=== PATIENT | female | born 1945 | race Caucasian/White ===

== ENCOUNTER 2019-12-17 07:07 | Emergency (ER) | payer MEDICARE ==
[2019-12-17] MEDS ORDERED: AMIODARONE 150 MG/3 ML VIAL IV ONE (07:08)
[2019-12-17] MEDS ORDERED: SODIUM BICARBONATE ABBOJECT 50 MEQ/50 ML SYRINGE IVP ONE (07:08)
[2019-12-17] MEDS ORDERED: EPINEPHrine ABBOJECT 1 MG/10 ML SYRINGE IVP ONE (07:08)
[2019-12-17] MEDS ORDERED: HEPARIN 5,000 UNIT/ML VIAL ONE (07:25)
[2019-12-17] MEDS ORDERED: ASPIRIN CHEW 81 MG TABLET ONE (07:25)
[2019-12-17] MEDS ORDERED: HEPARIN 25000UNITS/500ML (D5W) 25,000 UNIT/500 ML BAG IV ONE (07:26)
[2019-12-17] MEDS ORDERED: METOPROLOL TARTRATE 50 MG TABLET ONE (07:26)
[2019-12-17] MEDS ORDERED: NITROGLYCERIN SL 0.4 MG TABLET SL ONE (07:26)
--- NOTE | 2019-12-17 07:31 | ED Physician Documentation ---
PD HPI CHEST PAIN - Stated complaint Stated Complaint: CHEST PX - Chief complaint Chief Complaint: Cardiac - History obtained from History obtained from: Patient - Additional information Additional information: Patient presents emergency department complaining of substernal chest pain radiating to her left arm since 4:00 this morning. She states pain is 10 out of 10 and is a pressure and squeezing sensation. The patient states that she began to have chest discomfort yesterday evening, but that it was intermittent. However, she had intermittent pains all night but began to have unbroken pain ar ound 4:00 this morning. She states she feels mildly short of breath. No nausea or vomiting. She has been diaphoretic all morning. The patient states that nothing really seems to make the pain better or worse, but that she has not really tried to walk around. The patient denies history of this previously. No history of GERD. The patient states she had a stress test about 10 years ago but was not able to complete it, due to what she was told was deconditioning from her obesity. Patient states that she is not known to be a diabetic and usually has low blood pressure, not high. Patient is not known to have any coronary artery disease. She is not a smoker. No other complaints at this time. Review of Systems Ten Systems: 10 systems reviewed and negative Constitutional: reports: Reviewed and negative Eyes: reports: Reviewed and negative Ears: reports: Reviewed and negative Nose: reports: Reviewed and negative Throat: reports: Reviewed and negative Cardiac: reports: Chest pain / pressure Respiratory: reports: Dyspnea GI: reports: Reviewed and negative : reports: Reviewed and negative Skin: reports: Other (Diaphoresis) Musculoskeletal: reports: Reviewed and negative Neurologic: reports: Reviewed and negative Psychiatric: reports: Reviewed and negative Endocrine: reports: Reviewed and negative Immunocompromised: reports: Reviewed and negative PD PAST MEDICAL HISTORY - Past Medical History Past Medical History: No - Past Surgical 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, 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 - Present Medications Home Medications: Ambulatory Orders Medication Instructions Recorded Confirmed Mecobalamin [B12 Active] 1,000 mcg PO DAILY 12/17/19 12/17/19 No Known Home Medications 12/17/19 12/17/19 - Allergies Allergies/Adverse Reactions: Allergies Allergy/AdvReac Type Severity Reaction Status Date / Time codeine Allergy Unknown Verified 12/17/19 07:15 - Social History Does the pt smoke?: No Smoking Status: Never smoker Does the pt drink ETOH?: Yes ETOH Use: Wine Does the pt have substance abuse?: No - Immunizations Immunizations are current?: Yes PD ED PE NORMAL - Vitals Vital signs reviewed: Yes - General General: Alert and oriented X 3, Well developed/nourished, Other (Patient appears anxious and uncomfortable.She is tachypneic.) - HEENT HEENT: Atraumatic, PERRL, EOMI, Moist mucous membranes - Neck Neck: Supple, no meningeal sign - Cardiac Cardiac: RRR, No murmur, Strong equal pulses - Respiratory Respiratory: No respiratory distress, Clear bilaterally, Other (Patient is tachypneic but has nonlabored respirations.) - Abdomen Abdomen: Soft, Non tender, Non distended - Derm Derm: Normal color, No rash, Other (Moderate diaphoresis) - Extremities Extremities: No deformity - Neuro Neuro: Alert and oriented X 3, 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, No motor deficit, No sensory deficit, Normal speech - Psych Psych: Normal affect, Other (Anxious) Results - Vitals Vitals: Oxygen O2 Source Room air - EKG (time done) 0708 Rate: Rate (enter#) (77) Rhythm: NSR [place]: Normal Intervals: Normal [place] QRS: Normal Ischemia: ST elevation c/w ischemia Compare to prior EKG: Old EKG unavailable Computer interpretation: Agree with computer 0755 Rate: Rate (enter#) (80) Rhythm: NSR [place]: Normal Intervals: Normal [place] QRS: Normal Ischemia: ST elevation c/w ischemia (V1-V4, tombstone morphology), ST depression, T wave inversion (3, AVF) - Labs Labs: Laboratory Tests 12/17/19 12/17/19 12/17/19 07:18 07:18 07:18 WBC 10.2 RBC 4.84 Hgb 14.7 Hct 45.1 MCV 93.2 MCH 30.4 MCHC 32.6 RDW 14.8 Plt Count 283 MPV 10.8 Neut # (Auto) 6.0 Lymph # (Auto) 2.9 [place] # (Auto) 1.0 Eos # (Auto) 0.3 Baso # (Auto) 0.1 Absolute Nucleated RBC 0.00 Nucleated RBC % 0.0 Sodium 136 Potassium 3.6 Chloride 104 Carbon Dioxide 22 Anion Gap 10.0 BUN 25 H Creatinine 0.9 Estimated GFR (MDRD) 61 L Glucose 142 H POC Whole Bld Glucose Calcium 9.1 Total Bilirubin 0.4 AST 34 ALT 37 Alkaline Phosphatase 107 Troponin I High Sens 10.6 Total Protein 7.6 Albumin 4.2 Globulin 3.4 Albumin/Globulin Ratio 1.2 Lipase 41 12/17/19 07:29 WBC RBC Hgb Hct MCV MCH MCHC RDW Plt Count MPV Neut # (Auto) Lymph # (Auto) [place] # (Auto) Eos # (Auto) Baso # (Auto) Absolute Nucleated RBC Nucleated RBC % Sodium Potassium Chloride Carbon Dioxide Anion Gap BUN Creatinine Estimated GFR (MDRD) Glucose POC Whole Bld Glucose 139 H Calcium Total Bilirubin AST ALT Alkaline Phosphatase Troponin I High Sens Total Protein Albumin Globulin Albumin/Globulin Ratio Lipase PD MEDICAL DECISION MAKING - ED course Complexity details: reviewed results, re-evaluated patient, considered differential, d/w patient ED course: The patient's symptoms were concerning for an acute coronary event, and EKG showed ST elevations in V1 through V4, with inverted T waves in leads III and aVF. The patient was immediately given aspirin, heparin, metoprolol, and nitroglycerin. The nitroglycerin did improve the patient's pain greatly. I did speak with Dr. Schofield at [facility], who agreed to accept the patient in transfer. The patient was informed of the need for transfer and expressed agreement. The patient was being prepared for transfer when I was called into the patient's room emergently by nursing staff who stated that the patient had gone into ventricular tachycardia and lost consciousness. Patient was immediately attached to the defibrillator pads, and 3 shocks were ultimately delivered at 200 J each. After the third shock, the patient was found to come back into a sinus rhythm though she remained in V. tach in between each shock previously. Patient did not immediately regain consciousness, but was found to have a strong peripheral pulse, both radial and strong central pulses in her carotid artery. The patient did begin to awaken somewhat but within 1 or 2 minutes, began to lose consciousness again as she went back into ventricular tachycardia. Another shock was administered, but patient did not regain consciousness and was noted to be in ventricular fibrillation on the monitor. A another shock was administered and patient was also given amiodarone 300 mg IV. We were preparing to give epinephrine, when patient was given a third shock and was noted to come back into a sinus rhythm once again. Patient did remain awake though somewhat drowsy after this. Her blood pressure was found to be hypertensive, but she did remain in a normal sinus rhythm with a strong pulse after this and did not require further ACLS interventions. The patient's transport was changed from ground to air, and life flight crew did arrive within minutes. The patient remained stable after this. A repeat EKG showed more definite ST elevations in the anterior leads. The patient was transferred without further events. She was found to have a normal first troponin in the emergency department. - Critical Care Time(min): 60 Comments: Critical care was necessary, due to acute life-threatening event with high likelihood of imminent decline and , secondary to acute ST elevation [place], unstable ventricular tachycardia, and ventricular fibrillation. Time Includes: Direct patient care, Review records, Reassess patient, Document care, Coordinate care, See progress note Data interpretation: Labs, Pulse ox, Prior EKG, Cardiac output, See progress note Departure - Departure Disposition: 02 Transfer Acute Care Hosp Clinical Impression: STEMI (ST elevation myocardial infarction) Qualifiers: Involved coronary artery: unspecified coronary artery Qualified Code(s): I21.3 - ST elevation (STEMI) myocardial infarction of unspecified site Discharge Date/Time: 12/17/19 08:15
[2019-12-17 07:33] LABS: BASOPHILS # (AUTO) 0.1 10^3/uL (0.0-0.1); BASOPHILS % (AUTO) 0.7 %; EOSINOPHILS # (AUTO) 0.3 10^3/uL (0.0-0.7); EOSINOPHILS % (AUTO) 2.6 %; HGB - HEMOGLOBIN 14.7 g/dL (12.0-16.0); LYMPHOCYTES # (AUTO) 2.9 10^3/uL (1.5-3.5); LYMPHOCYTES % (AUTO) 28.1 %; MEAN CORPUSCULAR HEMOGLOBIN 30.4 pg (27.0-31.0); MEAN CORPUSCULAR HGB CONC 32.6 g/dL (32.0-36.0); MEAN CORPUSCULAR VOLUME 93.2 fL (81.0-99.0); MEAN PLATELET VOLUME 10.8 fL (7.9-10.8); MONOCYTES % (AUTO) 9.6 %; NEUTROPHILS % (AUTO) 58.3 %; PLT - PLATELET COUNT 283 10^3/uL (130-450); RED BLOOD COUNT 4.84 10^6/uL (4.20-5.40); RED CELL DISTRIBUTION WIDTH 14.8 % (12.0-15.0); WHITE BLOOD COUNT 10.2 x10^3/uL (4.8-10.8)
[2019-12-17] MEDS ORDERED: NITROGLYCERIN SL 0.4 MG TABLET SL STA (07:35)
[2019-12-17] MEDS ORDERED: HEPARIN 5,000 UNIT/ML VIAL IVP STA (07:35)
[2019-12-17] MEDS ORDERED: HEPARIN 25000UNITS/500ML (D5W) 25,000 UNIT/500 ML BAG IV STA (07:36)
[2019-12-17] MEDS ORDERED: METOPROLOL TARTRATE 50 MG TABLET PO STA (07:36)
[2019-12-17 07:38] LABS: ALBUMIN 4.2 g/dL (3.2-5.5); ALBUMIN/GLOBULIN RATIO 1.2 (1.0-2.2); BILIRUBIN,TOTAL 0.4 mg/dL (0.2-1.0); CALCIUM 9.1 mg/dL (8.5-10.3); CREATININE 0.9 mg/dL (0.4-1.0); TOTAL PROTEIN 7.6 g/dL (6.7-8.2)
[2019-12-17] MEDS ORDERED: ONDANSETRON 4 MG/2 ML VIAL IVP STA (07:53)
[2019-12-17] MEDS ORDERED: ONDANSETRON 4 MG/2 ML VIAL ONE (07:56)
[2019-12-17 07:59] VITALS: BP 160/96
== END 2019-12-17 08:15 | disposition short-term general hospital (02) ==
LOC: ED 07:07
DX: I21.3 ST elevation (STEMI) myocardial infarction of unspecified site (principal); I47.2 Ventricular tachycardia; I49.01 Ventricular fibrillation; I10 Essential (primary) hypertension
CPT/HCPCS: 36415; 80053; 83690; 84484; 85025; 93005; 96374; 96375; 99285; 99291; A9270; J0282

== ENCOUNTER 2019-12-27 14:54 | Emergency (ER) | payer MEDICARE ==
[2019-12-27] MEDS ORDERED: HYDROmorphone 1 MG/ML CARPUJECT IM STA (15:48)
--- NOTE | 2019-12-27 15:49 | ED Physician Documentation ---
PD HPI LOWER EXT INJURY - Stated complaint Stated Complaint: LT LEG PX - Chief complaint Chief Complaint: Ext Problem - History obtained from History obtained from: Patient (Recent ST elevation [place], taken from here over to [facility] where she has a stents, I think in her LAD. She is been home for about 5 or 6 days now, subsequent to having her procedure done she developed some significant pain in the left lower extremity. It is of the left thigh mostly anteriorly and laterally. At times it is much worse than others. Pain is almost so bad she cannot walk now. She denies fevers or chills. Has no significant back pain. She denies pedal edema. 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, Other - Present Medications Home Medications: Ambulatory Orders Medication Instructions Recorded Confirmed Mecobalamin [B12 Active] 1,000 mcg PO DAILY 12/17/19 12/17/19 Oxycodone HCl/Acetaminophen 1 - 2 each PO Q6H PRN #14 tablet 12/27/19 [Percocet 5-325 mg Tablet] predniSONE [Deltasone] 20 mg PO [id number] #21 tab 12/27/19 - Allergies Allergies/Adverse Reactions: Allergies Allergy/AdvReac Type Severity Reaction Status Date / Time codeine Allergy Unknown Verified 12/27/19 15:07 - Social History Does the pt smoke?: No Smoking Status: Never smoker Does the pt drink ETOH?: Yes Does the pt have substance abuse?: No - Immunizations Immunizations are current?: Yes PD ED PE NORMAL - Vitals Vital signs reviewed: Yes - General General: Alert and oriented X 3, No acute distress - HEENT HEENT: PERRL, EOMI - Neck Neck: Supple, no meningeal sign, No bony TTP - Extremities Extremities: Other (Left leg is warm and well perfused, visually normal, I do not see anything that looks like ischemia or sepsis. She is tender over the anteriorly and lateral thigh, also medially. There does not seem to be any asymmetry and there is no calf tenderness.) - Neuro Neuro: Alert and oriented X 3, Normal speech Results - Vitals Vitals: Vital Signs - 24 hr 12/27/19 12/27/19 15:07 16:00 Temperature 36.7 C 36.7 C Heart Rate 71 70 Respiratory 14 16 Rate Blood Pressure 149/68 H 158/58 H O2 Saturation 97 98 Oxygen O2 Source Room air - Labs Labs: Laboratory Tests 12/27/19 12/27/19 16:21 16:21 WBC 10.3 RBC 4.20 Hgb 12.9 Hct 39.4 MCV 93.8 MCH 30.7 MCHC 32.7 RDW 14.6 Plt Count 326 MPV 10.9 H Neut # (Auto) 7.9 H Lymph # (Auto) 1.3 L [place] # (Auto) 0.8 Eos # (Auto) 0.3 Baso # (Auto) 0.1 Absolute Nucleated RBC 0.00 Nucleated RBC % 0.0 Sodium 137 Potassium 4.3 Chloride 104 Carbon Dioxide 25 Anion Gap 8.0 BUN 23 H Creatinine 0.8 Estimated GFR (MDRD) 70 L Glucose 103 H Calcium 9.2 Total Bilirubin 0.7 AST 18 ALT 24 Alkaline Phosphatase 106 Total Protein 7.4 Albumin 3.8 Globulin 3.6 Albumin/Globulin Ratio 1.1 Lipase 38 - Rads (name of study) LLE DVT sono Radiology: EMP read contemporaneously (negative) PD MEDICAL DECISION MAKING - ED course ED course: 74yo woman with LLE pain most c/w with sciatica; ddx also includes infection, DVT. No evidence of the latter though. Departure - Departure Disposition: 01 Home, Self Care Clinical Impression: Sciatica of left side Condition: Good Record reviewed to determine appropriate education?: Yes Instructions: ED Sciatica Prescriptions: Oxycodone HCl/Acetaminophen [Percocet 5-325 mg Tablet] 1 - 2 each PO Q6H PRN #14 tablet PRN Reason: pain predniSONE [Deltasone] 20 mg PO [id number] #21 tab Comments: Return if worse, if pain is uncontrolled, for new or worrisome symptoms. Followup with your doctor tomorrow regardless.
[2019-12-27 16:38] LABS: BASOPHILS # (AUTO) 0.1 10^3/uL (0.0-0.1); BASOPHILS % (AUTO) 0.7 %; EOSINOPHILS # (AUTO) 0.3 10^3/uL (0.0-0.7); EOSINOPHILS % (AUTO) 2.6 %; HGB - HEMOGLOBIN 12.9 g/dL (12.0-16.0); LYMPHOCYTES # (AUTO) 1.3 10^3/uL (1.5-3.5); LYMPHOCYTES % (AUTO) 12.1 %; MEAN CORPUSCULAR HEMOGLOBIN 30.7 pg (27.0-31.0); MEAN CORPUSCULAR HGB CONC 32.7 g/dL (32.0-36.0); MEAN CORPUSCULAR VOLUME 93.8 fL (81.0-99.0); MEAN PLATELET VOLUME 10.9 fL (7.9-10.8); MONOCYTES # (AUTO) 0.8 10^3/uL (0.0-1.0); MONOCYTES % (AUTO) 7.6 %; NEUTROPHILS # (AUTO) 7.9 10^3/uL (1.5-6.6); NEUTROPHILS % (AUTO) 76.6 %; PLT - PLATELET COUNT 326 10^3/uL (130-450); RED CELL DISTRIBUTION WIDTH 14.6 % (12.0-15.0); WHITE BLOOD COUNT 10.3 x10^3/uL (4.8-10.8)
[2019-12-27 17:00] LABS: ALBUMIN 3.8 g/dL (3.2-5.5); ALBUMIN/GLOBULIN RATIO 1.1 (1.0-2.2); BILIRUBIN,TOTAL 0.7 mg/dL (0.2-1.0); CALCIUM 9.2 mg/dL (8.5-10.3); CREATININE 0.8 mg/dL (0.4-1.0); TOTAL PROTEIN 7.4 g/dL (6.7-8.2)
--- NOTE | 2019-12-27 17:29 | Ultrasound Report ---
Reason: leg pain Procedure Date: 12/27/2019 Accession Number: [id number] / [id number] Procedure: US - Duplex Ext Veins Left CPT Code: Final Report FULL RESULT: EXAM: LEFT LOWER EXTREMITY VENOUS ULTRASOUND EXAM DATE: 12/27/2019 04:40 PM. CLINICAL HISTORY: Leg pain. Patient on blood thinner. Patient indicates proximal lateral thigh pain. COMPARISON: None. TECHNIQUE: Real-time sonographic vascular imaging was performed by the depositing machine operator through the lower extremity utilizing both color-flow and Doppler spectral analysis. Multiple event representative static images were saved for review. FINDINGS: Common Femoral Vein (CFV): Normal. CFV-GSV Junction: Normal. Profunda Femoral Vein (PFV): Normal. Femoral Vein (FV) Prox: Normal. Femoral Vein (FV) Mid: Normal. Femoral Vein (FV) Dist: Normal. Popliteal Vein: Normal. Posterior Tibial Veins: Limited visualization. Peroneal Veins: Limited visualization. Contralateral Side CFV: Normal. Other: Small fluid collection medial patellar recess. IMPRESSION: Negative for left common femoral vein, left superficial femoral vein and left popliteal vein thrombosis. RADIA
[2019-12-27] MEDS ORDERED: predniSONE 20 MG TABLET PO STA (17:30)
[2019-12-27] MEDS ORDERED: oxyCODONE 5 MG TABLET PO STA (17:30)
[2019-12-27 17:54] VITALS: BP 138/89
== END 2019-12-27 17:53 | disposition home or self-care (01) ==
LOC: ED 14:54
DX: M54.32 Sciatica, left side (principal)
CPT/HCPCS: 36415; 80053; 83690; 85025; 93971; 96372; 99283; A9270; J1170; J7512

== ENCOUNTER 2019-12-30 10:10 | Emergency (ER) | payer MEDICARE ==
--- NOTE | 2019-12-30 11:14 | CT Report ---
Reason: Neuro deficit, acute, stroke suspected Procedure Date: 12/30/2019 Accession Number: [id number] / [id number] Procedure: CT - Head W/O Stroke Protocol CPT Code: Final Report FULL RESULT: EXAM: CT HEAD EXAM DATE: 12/30/2019 10:51 AM. CLINICAL HISTORY: Neuro deficit, acute, stroke suspected. COMPARISON: None. TECHNIQUE: Multiaxial CT images were obtained from the foramen magnum to the vertex. Reformats: Sagittal and coronal. IV contrast: None. In accordance with CT protocol optimization, one or more of the following dose reduction techniques were utilized for this exam: automated exposure control, adjustment of mA and/or KV based on patient size, or use of iterative reconstructive technique. FINDINGS: Clark-white matter differentiation is preserved. No intracranial mass or hemorrhage is present. No extra-axial fluid collections identified. Ventricles and sulci are within normal limits. Mastoid air cells are well aerated. The calvarium is intact. Soft tissue foci in the scalp likely reflects sebaceous cysts. IMPRESSION: 1. Normal noncontrast head CT. RADIA The critical test notification system was initiated by Dr. Alan Casillas at 11:03 AM on 12/30/2019. The above critical test findings were discussed with Edwige Piedra by Dr. Alan Casillsa at 11:05AM on 12/30/2019.
[2019-12-30 11:20] LABS: BASOPHILS # (AUTO) 0.1 10^3/uL (0.0-0.1); BASOPHILS % (AUTO) 0.4 %; EOSINOPHILS # (AUTO) 0.1 10^3/uL (0.0-0.7); EOSINOPHILS % (AUTO) 0.3 %; HGB - HEMOGLOBIN 12.6 g/dL (12.0-16.0); LYMPHOCYTES # (AUTO) 1.2 10^3/uL (1.5-3.5); MEAN CORPUSCULAR HEMOGLOBIN 30.5 pg (27.0-31.0); MEAN CORPUSCULAR HGB CONC 32.5 g/dL (32.0-36.0); MEAN CORPUSCULAR VOLUME 93.9 fL (81.0-99.0); MEAN PLATELET VOLUME 10.8 fL (7.9-10.8); MONOCYTES # (AUTO) 0.7 10^3/uL (0.0-1.0); MONOCYTES % (AUTO) 4.4 %; NEUTROPHILS # (AUTO) 14.7 10^3/uL (1.5-6.6); NEUTROPHILS % (AUTO) 87.2 %; PLT - PLATELET COUNT 348 10^3/uL (130-450); RED BLOOD COUNT 4.13 10^6/uL (4.20-5.40); RED CELL DISTRIBUTION WIDTH 14.6 % (12.0-15.0); WHITE BLOOD COUNT 16.8 x10^3/uL (4.8-10.8)
[2019-12-30 11:30] LABS: INR 1.2 (0.8-1.2); PT - PROTHROMBIN TIME 13.1 secs (9.9-12.6)
[2019-12-30 11:33] LABS: ALBUMIN 3.5 g/dL (3.2-5.5); ALBUMIN/GLOBULIN RATIO 0.9 (1.0-2.2); BILIRUBIN,TOTAL 0.6 mg/dL (0.2-1.0); CALCIUM 8.8 mg/dL (8.5-10.3); CREATININE 0.9 mg/dL (0.4-1.0); TOTAL PROTEIN 7.2 g/dL (6.7-8.2)
--- NOTE | 2019-12-30 14:33 | ED Physician Documentation ---
History of Present Illness - Stated complaint Stated Complaint: L SIDED WEAKNESS - Chief complaint Chief Complaint: Neuro - History obtained from History obtained from: Patient - Additonal information Additional information: Patient comes emergency department for follow-up of left-sided weakness that she has noticed over the last couple weeks since experiencing a STEMI with subsequent cardiac arrest. Patient states that while she was in the hospital at [facility] during her admission starting December 16, she began to notice a left-sided weakness of her arm and leg after she recovered from her cardiac cat heterization. She states she had had 2 stents placed and stayed in the hospital for several days afterward. She states she was afraid that she would get sent to a penitentiary or rehab center which she did not want to do, so she did not say much about the left-sided weakness. She states she was told by his therapist that if she could walk, she could go home to her own house with her . Patient states she was able to walk at the hospital but that it was very hard for her to lift her left leg up going up the stairs. However, she was cleared for discharge. She states that she just began having a home physical therapist coming to her house, and that the PT was concerned about this weakness. He called and talked to his supervising doctor, who told him to have the patient come here for further evaluation, which the patient has done. She states that the weakness really has not gotten any better or worse over the last couple of weeks. She states she has been trying to get up and around, but she is just very tired after her cardiac event, and that between this and the weakness, she has not been doing as much as she would like. The patient has been using a walker and a cane, which is new for her also since her cardiac admission. Patient states that she is not having any chest symptoms and that she otherwise is feeling fairly well. She denies any new visual changes or dr ooping face. No difficulty speaking or swallowing. Patient states she is able to hold things with her left hand but that she cannot hold them very tightly and that frequently they slide out. She also cannot make a fist the way she used to be able to. She states that she can stand on her left leg with the assistance of the walker, but that does tend to crumple under her. No other complaints at this time. No history of CVA. Patient is currently on Plavix, aspirin, antihypertensives, and a statin. According to discharge papers from [facility], patient has an appointment at [facility] residency clinic with Dr. Whyte at 1:00 in the afternoon on January 05. Review of Systems Ten Systems: 10 systems reviewed and negative Constitutional: reports: Reviewed and negative Eyes: reports: Reviewed and negative Ears: reports: Reviewed and negative Nose: reports: Reviewed and negative Throat: reports: Reviewed and negative Cardiac: reports: Reviewed and negative Respiratory: reports: Reviewed and negative GI: reports: Reviewed and negative : reports: Reviewed and negative Skin: reports: Reviewed and negative Musculoskeletal: reports: Reviewed and negative Neurologic: reports: Focal weakness (Left side) Psychiatric: reports: Reviewed and negative Endocrine: reports: Reviewed and negative Immunocompromised: reports: Reviewed and negative PD PAST MEDICAL HISTORY - Past Medical History Past Medical History: Yes Cardiovascular: [place] - Past Surgical History 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, Other Cardiovascular: Coronary stent - Present Medications Home Medications: Ambulatory Orders Medication Instructions Recorded Confirmed Mecobalamin [B12 Active] 1,000 mcg PO DAILY 12/17/19 12/17/19 Oxycodone HCl/Acetaminophen 1 - 2 each PO Q6H PRN #14 tablet 12/27/19 [Percocet 5-325 mg Tablet] predniSONE [Deltasone] 20 mg PO [id number] #21 tab 12/27/19 - Allergies Allergies/Adverse Reactions: Allergies Allergy/AdvReac Type Severity Reaction Status Date / Time codeine Allergy Unknown Verified 12/30/19 10:36 - Social History Does the pt smoke?: No Smoking Status: Never smoker Does the pt drink ETOH?: Yes Does the pt have substance abuse?: No - Immunizations Immunizations are current?: Yes PD ED PE NORMAL - Vitals Vital signs reviewed: Yes - General General: Alert and oriented X 3, No acute distress - HEENT HEENT: PERRL - Neck Neck: Supple, no meningeal sign - Cardiac Cardiac: RRR, No murmur - Respiratory Respiratory: No respiratory distress, Clear bilaterally - Abdomen Abdomen: Soft, Non tender, Non distended - Derm Derm: Warm and dry - Extremities Extremities: No deformity - Neuro Neuro: Alert and oriented X 3 - Psych Psych: Normal mood, Normal affect PD ED PE EXPANDED - Neuro Neuro: Alert and Oriented X 3, Weakness, LUE (Patient has markedly weakened safety intern strength of the left hand compared to the right. She is not able to fully close her flexed fingers around my fingers. She is able to only weakly resist with flexion of the elbow when trying to pull my hand toward her body with resistance. Patient can oppose her fingers and thumb on the left, but this is slow and without from resistance. She is able to hold her left arm straight forward against gravity, but with some drift.), LLE (Able to resist gravity, but somewhat weakly when asked to lift her left leg off the bed. Dorsiflexion is present but markedly weaker than the right side at 4 out of 5.) Results - Vitals Vitals: Oxygen O2 Source Room air - Labs Labs: Laboratory Tests 12/30/19 12/30/19 12/30/19 11:02 11:02 11:02 WBC 16.8 H RBC 4.13 L Hgb 12.6 Hct 38.8 MCV 93.9 MCH 30.5 MCHC 32.5 RDW 14.6 Plt Count 348 MPV 10.8 Neut # (Auto) 14.7 H Lymph # (Auto) 1.2 L [place] # (Auto) 0.7 Eos # (Auto) 0.1 Baso # (Auto) 0.1 Absolute Nucleated RBC 0.00 Nucleated RBC % 0.0 PT 13.1 H INR 1.2 Sodium 136 Potassium 4.4 Chloride 101 Carbon Dioxide 26 Anion Gap 9.0 BUN 28 H Creatinine 0.9 Estimated GFR (MDRD) 61 L Glucose 125 H Calcium 8.8 Total Bilirubin 0.6 AST 20 ALT 20 Alkaline Phosphatase 91 B-Natriuretic Peptide Total Protein 7.2 Albumin 3.5 Globulin 3.7 Albumin/Globulin Ratio 0.9 L Lipase 36 12/30/19 11:02 WBC RBC Hgb Hct MCV MCH MCHC RDW Plt Count MPV Neut # (Auto) Lymph # (Auto) [place] # (Auto) Eos # (Auto) Baso # (Auto) Absolute Nucleated RBC Nucleated RBC % PT INR Sodium Potassium Chloride Carbon Dioxide Anion Gap BUN Creatinine Estimated GFR (MDRD) Glucose Calcium Total Bilirubin AST ALT Alkaline Phosphatase B-Natriuretic Peptide 67 Total Protein Albumin Globulin Albumin/Globulin Ratio Lipase - Rads (name of study) CT head Radiology: Final report received, EMP read indepedently, See rad report PD MEDICAL DECISION MAKING - ED course Complexity details: reviewed old records, reviewed results, re-evaluated patient, considered differential, d/w patient ED course: Pt was worked up with labs and CT scan of the brain, all of which were unremarkable. I suspected that the pt had had an ischemic event during the STEMI and code blue she had on 12/16. At this time, the pt is on ASA and Plavix, which is appropriate preventative therapy, and does have home PT coming twice a week. She had been assigned a follow-up appointment on January 05 at 1300 at the [facility]. I spoke with cardiology, also, to relay the report of the pt's sx and potential need to arrange neurology follow-up and potentially, more focused therapy. Dr. Hanson stated she would note this for the pt's follow-up appointment on January 17. The Residency Clinic was also contacted, but they stated that the resident with whom the pt had been scheduled was no longer rotating there, but that one of the other physicians would see the pt. Pt lives at home with her , and states she would like to go home and follow up. At this point, I do not feel the pt would benefit from inpatient management, and pt is not at this time interested in a rehab/skilled facility. She has appointments with primary care and cardiology in the near future, and is on appropriate medications. We have discussed follow up and the usual indications for return. Departure - Departure Disposition: 01 Home, Self Care Clinical Impression: Stroke-like symptoms Condition: Stable Instructions: ED Stroke Completed Comments: Your labs look good, and your head CT does not show any distinct area of stroke. Most likely, when your heart stopped, the decreased blood flow in your general system caused a lack of oxygen delivery through some of the smaller vessels of your brain, causing a diffuse stroke. Given that nearly 2 weeks have elapsed since this occurred, there is not a specific intervention to be done at this time. You are on the appropriate medications for both your heart and your brain circulation, in the form of aspirin and clopidogrel, as well as your blood pressure medication and cholesterol medication. Your case has been discussed with the on-call ward assistant from [facility], Dr. Hanson, who has reviewed your case. You have an appointment with them at 3:30 in the afternoon on January 17 and should plan to keep this appointment. You should follow-up as planned on January 05 at 1:00 in the afternoon. Although the physician to whom you were originally assigned, Dr. Whyte, is no longer at the clinic, you will see 1 of his associates there. At that time, you can discuss with them the potential for neurology follow-up and any further neurologic rehab. At this time though, you may continue to work with the physical therapist on using your left side. You may also do the range of motion exercises that we have discussed here in the emergency department to help get those nerves awakened again. If you develop any new strokelike symptoms, or of course if you develop any chest pain or shortness of breath, please return to the emergency department immediately. Discharge Date/Time: 12/30/19 14:52
[2019-12-30 14:46] VITALS: BP 170/79
== END 2019-12-30 14:52 | disposition home or self-care (01) ==
LOC: ED 10:10
DX: R29.898 Other symptoms and signs involving the musculoskeletal system (principal); I21.3 ST elevation (STEMI) myocardial infarction of unspecified site; Z95.5 Presence of coronary angioplasty implant and graft; Z79.02 Long term (current) use of antithrombotics/antiplatelets; Z79.82 Long term (current) use of aspirin
CPT/HCPCS: 36415; 70450; 80053; 83690; 83880; 85025; 85610; 99284

== ENCOUNTER 2021-03-28 11:01 | Outpatient (CLI) | payer MEDICARE | END 2021-03-28 11:02 | disposition home or self-care (01) | LOC: NS 11:01 | PROVIDERS: ATTEND Internal Medicine | DX: Z71.3 Dietary counseling and surveillance (principal); I11.0 Hypertensive heart disease with heart failure; I50.32 Chronic diastolic (congestive) heart failure | CPT/HCPCS: 97802 ==

== ENCOUNTER 2021-05-16 10:03 | Outpatient (CLI) | payer MEDICARE | END 2021-05-16 10:04 | disposition home or self-care (01) | LOC: NS 10:03 | PROVIDERS: ATTEND Internal Medicine | DX: Z71.3 Dietary counseling and surveillance (principal); I11.0 Hypertensive heart disease with heart failure; I50.32 Chronic diastolic (congestive) heart failure | CPT/HCPCS: 97803 ==

== ENCOUNTER 2021-06-08 13:11 | Outpatient (CLI) | payer MEDICARE ==
--- NOTE | 2021-06-14 02:21 | XRAY Report ---
PROCEDURE: Knee 3 View RT INDICATIONS: RIGHT KNEE CONTUSION AND INJURY TECHNIQUE: 3 views of the right knee(s) were acquired. COMPARISON: None. FINDINGS: Bones: No fractures or dislocations. No suspicious bony lesions. Moderate to severe medial and pat ellofemoral compartment narrowing. Periarticular osteophytes are present. Corticated focus of ossific ation is present adjacent to the superior aspect of the patella suspected to be related to old trauma . Soft tissues: Mild joint effusion. No suspicious soft tissue calcifications. IMPRESSION: Arthritic changes as above. No visualized acute fracture or dislocation. However, occult injury cannot be excluded. Recommend short interval imaging follow-up in 7-10 days as clinically ind icated for additional evaluation. Reviewed by: Katty Shoemaker MD on 06/14/2021 12:45 AM PDT Approved by: Katty Shoemaker MD on 06/14/2021 12:45 AM PDT Station ID: [id number]
== END 2021-06-08 23:59 | disposition home or self-care (01) ==
LOC: DI.N 13:11
PROVIDERS: ATTEND Physician Assistant Medical
DX: S80.01XA Contusion of right knee, initial encounter (principal); M17.11 Unilateral primary osteoarthritis, right knee

== ENCOUNTER 2021-06-13 09:59 | Outpatient (CLI) | payer MEDICARE | END 2021-06-13 10:00 | disposition home or self-care (01) | LOC: NS 09:59 | PROVIDERS: ATTEND Internal Medicine | DX: Z71.3 Dietary counseling and surveillance (principal); I11.0 Hypertensive heart disease with heart failure; I50.32 Chronic diastolic (congestive) heart failure | CPT/HCPCS: 97803 ==

== ENCOUNTER 2022-03-08 14:31 | Emergency (ER) | payer MEDICARE ==
--- NOTE | 2022-03-08 16:13 | XRAY Report ---
PROCEDURE: Elbow 3 View LT INDICATIONS: TRAUMA TECHNIQUE: 3 views of the elbow were acquired. COMPARISON: None FINDINGS: Bones: No fractures or dislocations. No suspicious bony lesions. Soft tissues: No elbow joint effusion. No suspicious soft tissue calcifications. IMPRESSION: No acute radiographic abnormality. Consider repeat radiography in 7-10 days if there is high concern for occult injury. Reviewed by: Hill Grajeda MD on 03/08/2022 4:11 PM PDT Approved by: Hill Grajeda MD on 03/08/2022 4:11 PM PDT Station ID: [id number]
--- NOTE | 2022-03-08 16:22 | XRAY Report ---
PROCEDURE: Forearm LT INDICATIONS: TRAUMA TECHNIQUE: 2 views of the forearm were acquired. COMPARISON: None FINDINGS: Bones: No fractures or dislocations. No suspicious bony lesions. Soft tissues: No suspicious soft tissue calcifications or masses. IMPRESSION: No acute radiographic abnormality. Reviewed by: Hill Grajeda MD on 03/08/2022 4:21 PM PDT Approved by: Hill Grajeda MD on 03/08/2022 4:21 PM PDT Station ID: [id number]
--- NOTE | 2022-03-08 16:25 | ED Physician Documentation ---
PD HPI UPPER EXT INJURY - Stated complaint Stated Complaint: FALL - Chief complaint Chief Complaint: Neuro - History obtained from History obtained from: Patient, Family - History of Present Illness Location: Left, Elbow, Forearm Type of injury: Fall (she was out in their greenhouse and fainted, falling onto the door railing onto left forearm/elbow. Did not strike head. Aware promptly. States she has had brief episdoes of being unaware, typically while seated. But has had couple of episodes while standing leading to fall. No Dx yet. Had Holter.) Where injury occurred: Home Timing - onset: Today Timing - details: Abrupt onset Worsened by: Palpating (tender with swelling left proximal forearm to elbow.) Associated symptoms: No: Weakness, Numbness Contributing factors: No: Anticoagulated Similar symptoms before: No diagnosis (has had fainting or "blanking" episodes from seconds to minute or so, where not aware. Will be watching TV and then next be aware of new topic/missed part of discussion/etc. has been next to her at times and does not notice any unusual breathing, gestures, shaking, tremors.) Recently seen: Clinic (had been to PMD about these and referred to Cardiology with [place] for 2 weeks, during which she had some episodes and did not correlate with abn rhythm. Has had blood tests. Getting referred to Endocrine.) Review of Systems Constitutional: denies: Fever, Chills Nose: denies: Rhinorrhea / runny nose, Congestion Throat: denies: Sore throat Cardiac: denies: Chest pain / pressure, Palpitations Respiratory: denies: Dyspnea, Cough GI: denies: Abdominal Pain, Nausea, Vomiting, Diarrhea, Bloody / black stool Neurologic: reports: Difficulty speaking (some lost words or slight sentence forming problems at times since cardiac arrest with Mi.) PD PAST MEDICAL HISTORY - Past Medical History Cardiovascular: [place], Arrhythmia (v-fib with [place]; no further abnormal rhythms. 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 Living Arrangement: reports: At home - Social History Does the pt smoke?: No Smoking Status: Never smoker Does the pt drink ETOH?: Yes Does the pt have substance abuse?: No - Immunizations Immunizations are current?: Yes PD ED PE NORMAL - Vitals Vital signs reviewed: Yes - General General: Alert and oriented X 3, No acute distress, Well developed/nourished - HEENT HEENT: Atraumatic, Pharynx benign - Neck Neck: Supple, no meningeal sign, No adenopathy, No bruit - Cardiac Cardiac: RRR, No murmur - Respiratory Respiratory: Clear bilaterally - Abdomen Abdomen: Soft, Non tender - Derm Derm: Normal color, Warm and dry - Extremities Extremities: Other (left proximal forear ulnar side up to the posterior elbow with local tenderness and swelling and surface abrasion. No laceration. No effusion. 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 No: ST elevation c/w ischemia, ST depression - Rads (name of study) forearm and elbow Radiology: Prelim report reviewed (no fractures), See rad report head CT Radiology: Prelim report reviewed (no ICH nor acute process), See rad report PD MEDICAL DECISION MAKING - ED course Complexity details: reviewed results, considered differential (fell to elbow and can get xrays. [facility] or had another blank episode. Appears well here. Did complain of headache starting while here, so got CT in lieu of fall. Has had prior [place], labs, cardiology eval for these episodes, so I don't think much testing now. ), d/w patient Departure - Departure Disposition: 01 Home, Self Care Clinical Impression: Syncopal episodes, Fall, Forearm contusion Condition: Stable Record reviewed to determine appropriate education?: Yes Instructions: ED Contusion Upper Ext Comments: Your x-ray of the elbow and forearm are negative without any fractures. O bviously will still be bruised and sore in the area. Use the sling as needed for comfort. Tylenol or ibuprofen if needed for pains. Your head CT scan does not show any bleeding or swelling. Likely you may have banged your head with falling and the subsequent headache. I would anticipate this to improve over a day or 2. Regarding your episodes of "blankness", it is good that you have had it i nvestigated and its not related to an abnormal heart rhythm. Does not sound like it should be related to blood sugar or blood pressure variations per se. Consideration would be perhaps having your primary care refer you to neurology for consideration of petit mal or partial seizures. Discharge Date/Time: 03/08/22 19:13
[2022-03-08] MEDS ORDERED: HYDROcod/ACETAM 5/325 MG TABLET PO STA (16:56)
--- NOTE | 2022-03-08 17:43 | CT Report ---
PROCEDURE: HEAD WO INDICATIONS: fall with headache TECHNIQUE: Noncontrast 4.5 mm thick angled axial sections acquired from the foramen magnum to the vertex. For r adiation dose reduction, the following was used: automated exposure control, adjustment of mA and/or kV according to patient size. COMPARISON: None. FINDINGS: Image quality: Excellent. CSF spaces: Basal cisterns are patent. No extra-axial fluid collections. Ventricles are normal in size and shape. Brain: No midline shift. No intracranial masses or hemorrhage. Clark-white matter interface is norm al. Skull and face: Calvarium and visualized facial bones are intact, without suspicious lesions. There are benign-appearing partially calcified and calcified subcutaneous soft tissue lesions likely repres enting sebaceous cysts. No aggressive features identified. Sinuses: Visualized sinuses and mastoids are clear. IMPRESSION: CT head without acute intracranial abnormalities or acute calvarial fractures. Reviewed by: Jagdeep Johnson MD on 03/08/2022 5:42 PM PDT Approved by: Jagdeep Johnson MD on 03/08/2022 5:42 PM PDT Station ID: [id number]
[2022-03-08 19:09] VITALS: BP 147/76
== END 2022-03-08 19:13 | disposition home or self-care (01) ==
LOC: ED 14:31
DX: R55 Syncope and collapse (principal); S50.812A Abrasion of left forearm, initial encounter; W19.XXXA Unspecified fall, initial encounter; Y93.H2 Activity, gardening and landscaping; Y92.89 Other specified places as the place of occurrence of the external cause
CPT/HCPCS: 70450; 73080; 73090; 93005; 99284; A9270

== ENCOUNTER 2022-08-30 10:23 | Emergency (ER) | payer MEDICARE ==
--- NOTE | 2022-08-30 11:02 | ED Physician Documentation ---
PD HPI LOWER EXT INJURY - Stated complaint Stated Complaint: L KNEE SORE - Chief complaint Chief Complaint: Trauma Ext - History obtained from History obtained from: Patient - History of Present Illness PD HPI LOW EXT INJURY LOCATION: Left, Knee Type of injury: Fall (she states her right ankle gave out and she fell forward onto left knee directly without torsion. Had local pain and swelling and subsequent bruising. Pain has persisted and some bruising below knee now.) Timing - onset: How many weeks ago (1) Timing - details: Abrupt onset, Still present (swelling has decreased but still hurts to palpation and with knee extension. Some feeling of clicking/grinding but no locking nor giving out.) Improved by: Rest Worsened by: Moving, Palpating Associated symptoms: Swelling, Discolored (bruising). No: Weakness, Numbness Contributing factors: No: Anticoagulated Similar symptoms before: Has not had sx before Review of Systems Skin: denies: Abrasion (s), Laceration (s) Neurologic: denies: Focal weakness, Numbness PD PAST MEDICAL HISTORY - Past Medical History Cardiovascular: [place], Arrhythmia (v-fib with [place]; no further abnormal rhythms. 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 Cardiovascular: Coronary stent - Present Medications Home Medications: Ambulatory Orders Medication Instructions Recorded Confirmed Colchicine 0.6 mg PO 08/30/22 Furosemide [Lasix] 20 mg PO DAILY 08/30/22 08/30/22 Gabapentin [Neurontin] 300 mg PO HS 08/30/22 08/30/22 HYDROcod/ACETAM 5/325 [[place] 5/325] 1 ea PO Q6H PRN #10 tablet 08/30/22 Isosorbide Mononitrate [Isosorbide 60 mg PO DAILY 08/30/22 08/30/22 Mononitrate ER] Lisinopril [Zestril] 2.5 mg PO DAILY 08/30/22 08/30/22 Meloxicam [Mobic] 7.5 mg PO BID 10 Days #20 tablet 08/30/22 Rosuvastatin Calcium [Crestor] 40 mg PO HS 08/30/22 08/30/22 Sertraline [Zoloft] 25 mg PO DAILY 08/30/22 08/30/22 allopurinoL [Allopurinol] 300 mg PO DAILY 08/30/22 08/30/22 metFORMIN [Glucophage] 500 mg PO BIDWM 08/30/22 08/30/22 - Allergies Allergies/Adverse Reactions: Allergies Allergy/AdvReac Type Severity Reaction Status Date / Time codeine Allergy Unknown Verified 08/30/22 10:38 diazepam [From Valium] AdvReac Unknown Verified 08/30/22 10:38 - Social History Does the pt smoke?: No Smoking Status: Never smoker Does the pt drink ETOH?: Yes Does the pt have substance abuse?: No - Immunizations Immunizations are current?: Yes PD ED PE NORMAL - Vitals Vital signs reviewed: Yes - General General: Alert and oriented X 3, No acute distress, Well developed/nourished - Derm Derm: Normal color, Warm and dry - Extremities Extremities: Other (left knee with some soft tissue swelling and bruising purple yellow at anterolateral aspect and bruising down to anterior mid tibial area without tenderness there Able to extend knee though hurts c/w no patellar tendon disruption. No knee effusion. Lever test normal c/w ACL intact. MCL testing ok. ) Results - Vitals Vitals: Vital Signs - 24 hr 08/30/22 12:13 Heart Rate 75 Respiratory 16 Rate Blood Pressure 126/71 O2 Saturation 99 Oxygen O2 Source Room air - Rads (name of study) xray knee Radiology: Prelim report reviewed, EMP read indepedently (tricompartment arthritis without fracture. ), See rad report PD Medical Decision Making - ED course Complexity details: considered differential, d/w patient Reviewed Lab Results: xray ordered to evaluate for fracture of patella and this is negative except for arthritic. Exam showing bruising and local tender. Mechanism of injury would be less likely for ACL/MCL injury. She may have some element of meniscal bruising as does hurt with weight bearing and pivot. This should get better with time, as would the contusion. Can give hinged knee brace to reduce pivot. Departure - Departure Disposition: 01 Home, Self Care Clinical Impression: Fall from slip, trip, or stumble, Knee contusion, Meniscal injury Condition: Stable Record reviewed to determine appropriate education?: Yes Instructions: ED Contusion Lower Ext Prescriptions: Meloxicam [Mobic] 7.5 mg PO BID 10 Days #20 tablet HYDROcod/ACETAM 5/325 [[place] 5/325] 1 ea PO Q6H PRN #10 tablet PRN Reason: Pain Comments: Your x-ray is normal without any signs of fractures. On exam you certainly have the bruising and so a good part of your pain is likely just some contusion/bruising of the knee and muscles and ligaments. However some your symptoms suggest may be some bruising of the cartilage inside as well. This should improve with time. You can use the knee brace if needed to reduce rotational movement and pain that way. Otherwise some anti-inflammatory such as meloxicam twice daily with food for the next 7 to 10 days. To that add Tylenol every 4-6 hours if needed for pain. I also prescribed hydrocodone to use if needed for worse pain at times, particular at night etc. Is a new prescriptions to the [facility] pharmacy. Follow-up with your primary care or orthopedics if not improved over the next week to 10 days. I am prescribing a short course of narcotic pain medication for you. These are potentially dangerous and addictive medications that should be used carefully. These medications may constipate you. Take an [id number] stool softener such as docusate twice daily with plenty of water while taking these medications. If you go 24 hours without a bowel movement, take [id number] MiraLAX, per package instructions. Do not drink or drive while taking these medications. If you received narcotic or sedating medications while in the emergency department do not drive for 24 hours. Store this medication in a safe, secure place and out of reach of children. It is a violation of federal law to give or sell this medication to another person or to use in a manner other than prescribed. The ED will not refill narcotic prescriptions, including prescriptions lost or stolen. You can dispose of unwanted medications at the [facility]'s office or at several pharmacies such as [facility]. Discharge Date/Time: 08/30/22 12:14
--- NOTE | 2022-08-30 11:03 | XRAY Report ---
PROCEDURE: Knee 4 View LT INDICATIONS: Trauma TECHNIQUE: 4 views of the left knee(s) were acquired. COMPARISON: None. FINDINGS: Bones: No fractures or dislocations. Tricompartmental degenerative changes with tricompartmental ost eophytes and severe medial joint space narrowing are consistent with osteoarthritis. There is an ench ondroma in the femoral metaphysis. Soft tissues: No joint effusion. No suspicious soft tissue calcifications. IMPRESSION: 1. Tricompartmental degenerative changes consistent with osteoarthritis. 2. No acute abnormality. Reviewed by: Jose David Pete on 08/30/2022 11:01 AM [facility] Approved by: Jose David Pete on 08/30/2022 11:01 AM [facility] Station ID: [id number]
[2022-08-30] MEDS ORDERED: NAPROXEN 250 MG TABLET PO STA (11:37)
[2022-08-30 12:14] VITALS: BP 126/71
== END 2022-08-30 12:14 | disposition home or self-care (01) ==
LOC: ED 10:23
DX: S80.02XA Contusion of left knee, initial encounter (principal); S83.8X2A Sprain of other specified parts of left knee, initial encounter; W18.30XA Fall on same level, unspecified, initial encounter
CPT/HCPCS: 73564; 99283; A9270

== ENCOUNTER 2022-11-13 09:50 | Emergency (ER) | payer MEDICARE, OTHER ==
[2022-11-13 10:28] LABS: BASOPHILS % (AUTO) 0.5 %; EOSINOPHILS # (AUTO) 0.2 10^3/uL (0.0-0.7); EOSINOPHILS % (AUTO) 2.9 %; HCT - HEMATOCRIT 40.5 % (37.0-47.0); HGB - HEMOGLOBIN 13.1 g/dL (12.0-16.0); LYMPHOCYTES # (AUTO) 1.5 10^3/uL (1.5-3.5); LYMPHOCYTES % (AUTO) 22.8 %; MEAN CORPUSCULAR HEMOGLOBIN 30.5 pg (27.0-31.0); MEAN CORPUSCULAR HGB CONC 32.3 g/dL (32.0-36.0); MEAN CORPUSCULAR VOLUME 94.2 fL (81.0-99.0); MEAN PLATELET VOLUME 10.9 fL (7.9-10.8); MONOCYTES # (AUTO) 0.5 10^3/uL (0.0-1.0); MONOCYTES % (AUTO) 8.2 %; NEUTROPHILS # (AUTO) 4.3 10^3/uL (1.5-6.6); NEUTROPHILS % (AUTO) 65.4 %; PLT - PLATELET COUNT 230 10^3/uL (130-450); RED CELL DISTRIBUTION WIDTH 15.6 % (12.0-15.0); WHITE BLOOD COUNT 6.6 x10^3/uL (4.8-10.8)
--- NOTE | 2022-11-13 10:43 | XRAY Report ---
PROCEDURE: Chest 1 View X-Ray INDICATIONS: Chest pain TECHNIQUE: One view of the chest was acquired. COMPARISON: None. FINDINGS: Surgical changes and devices: None. Lungs and pleura: No pleural effusions or pneumothorax. Lungs are clear. Mediastinum: Mediastinal contours appear normal. Heart size is normal. Bones and chest wall: No suspicious bony lesions. Overlying soft tissues appear unremarkable. IMPRESSION: No acute cardiopulmonary process. Reviewed by: Julian Gavin on 11/13/2022 10:40 AM PDT Approved by: Julian Gavin on 11/13/2022 10:40 AM PDT Station ID: [id number]
[2022-11-13 10:46] LABS: ALBUMIN 3.8 g/dL (3.2-5.5); ALBUMIN/GLOBULIN RATIO 1.2 (1.0-2.2); BILIRUBIN,TOTAL 0.9 mg/dL (0.2-1.0); CALCIUM 9.2 mg/dL (8.5-10.3); CREATININE 0.8 mg/dL (0.4-1.0); TOTAL PROTEIN 7.1 g/dL (6.7-8.2)
--- NOTE | 2022-11-13 11:10 | ED Physician Documentation ---
PD HPI CHEST PAIN - Stated complaint Stated Complaint: LT SIDE PX, NUMB, SOA - Chief complaint Chief Complaint: Cardiac - History obtained from History obtained from: Patient - History of Present Illness Timing - onset: Last night, Yesterday Timing - onset during: Light activity Timing - duration: Hours (has had symptoms to some degree (persistent, und ulating severity) for almost 12 hours and worse the past 4-6 hours.) Timing - details: Gradual onset, Still present, Waxing and waning. No: Intermittant Quality: Pressure, Aching (she says a tingling, jabbing feeling in chest to left upper arm.) Location: Left chest, Left shoulder/arm Radiation: No: Jaw, Neck Improved by: No: Rest Worsened by: No: Inspiration, Eating, Movement Associated symptoms: Shortness of air, Other (feeling anxious). No: Nausea, Feeling faint / dizzy, Palpitations Similar symptoms before: Diagnosis (she says is very same feeling when had mi and got heart stent in the past, about 3 years ago.) Recently seen: Not recently seen Review of Systems Constitutional: denies: Fever, Chills Nose: denies: Rhinorrhea / runny nose, Congestion Throat: denies: Sore throat Respiratory: denies: Cough GI: denies: Abdominal Pain, Nausea, Vomiting Musculoskeletal: reports: Extremity swelling (right ankle and lower leg with some swelling and has had ankle pain with using ankle brace for support.) PD PAST MEDICAL HISTORY - Past Medical History Past Medical History: Yes Cardiovascular: [place], Arrhythmia - Past Surgical History 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, Other Cardiovascular: Coronary stent - Present Medications Home Medications: Ambulatory Orders Medication Instructions Recorded Confirmed Colchicine 0.6 mg PO 08/30/22 Furosemide [Lasix] 20 mg PO DAILY 08/30/22 08/30/22 Gabapentin [Neurontin] 300 mg PO HS 08/30/22 08/30/22 HYDROcod/ACETAM 5/325 [[place] 5/325] 1 ea PO Q6H PRN #10 tablet 08/30/22 Isosorbide Mononitrate [Isosorbide 60 mg PO DAILY 08/30/22 08/30/22 Mononitrate ER] Lisinopril [Zestril] 2.5 mg PO DAILY 08/30/22 08/30/22 Meloxicam [Mobic] 7.5 mg PO BID 10 Days #20 tablet 08/30/22 Rosuvastatin Calcium [Crestor] 40 mg PO HS 08/30/22 08/30/22 Sertraline [Zoloft] 25 mg PO DAILY 08/30/22 08/30/22 allopurinoL [Allopurinol] 300 mg PO DAILY 08/30/22 08/30/22 metFORMIN [Glucophage] 500 mg PO BIDWM 08/30/22 08/30/22 Albuterol Sulf [Ventolin Hfa 1 - 2 puffs INH Q4HR PRN #1 each 11/13/22 Inhaler] Famotidine [Pepcid] 20 mg PO DAILY #20 tablet 11/13/22 - Allergies Allergies/Adverse Reactions: Allergies Allergy/AdvReac Type Severity Reaction Status Date / Time codeine Allergy Unknown Verified 11/13/22 10:05 diazepam [From Valium] AdvReac Unknown Verified 11/13/22 10:05 - Social History Does the pt smoke?: No Smoking Status: Never smoker Does the pt drink ETOH?: Yes Does the pt have substance abuse?: No - Immunizations Immunizations are current?: Yes PD ED PE NORMAL - Vitals Vital signs reviewed: Yes - General General: Alert and oriented X 3, No acute distress (not from pain but very anxious about what is going on. concerned about another mI. ), Well developed/nourished - Neck Neck: Supple, no meningeal sign, No adenopathy - Cardiac Cardiac: RRR, No murmur - Respiratory Respiratory: Clear bilaterally - Abdomen Abdomen: Soft, Non tender - Derm Derm: Normal color, Warm and dry - Extremities Extremities: No calf tenderness / cord, Other (right leg with ankle brace on, and some mild edema. No calf tender. ) - Neuro Neuro: Alert and oriented X 3, No motor deficit, Normal speech Results - Vitals Vitals: Oxygen O2 Source Room air - EKG (time done) 10:08 EKG releavant findings:: EKG personally interpreted by author of this note. Relevant findings are: Rate: Rate (enter#) (69) Rhythm: NSR Lamar: Normal Intervals: Normal ME QRS: Normal, Low voltage Ischemia: Normal ST segments. No: ST elevation c/w ischemia, ST depression - Labs Labs: Laboratory Tests 11/13/22 11/13/22 11/13/22 10:21 10:21 10:21 WBC 6.6 RBC 4.30 Hgb 13.1 Hct 40.5 MCV 94.2 MCH 30.5 MCHC 32.3 RDW 15.6 H Plt Count 230 MPV 10.9 H Neut # (Auto) 4.3 Lymph # (Auto) 1.5 F[place]ardo # (Auto) 0.5 Eos # (Auto) 0.2 Baso # (Auto) 0.0 Absolute Nucleated RBC 0.00 Nucleated RBC % 0.0 Sodium 137 Potassium 4.4 Chloride 102 Carbon Dioxide 28 Anion Gap 7.0 BUN 22 H Creatinine 0.8 Estimated GFR (MDRD) 70 L Glucose 122 H Calcium 9.2 Total Bilirubin 0.9 AST 28 ALT 18 Alkaline Phosphatase 73 Troponin I High Sens 3.3 B-Natriuretic Peptide Total Protein 7.1 Albumin 3.8 Globulin 3.3 Albumin/Globulin Ratio 1.2 Lipase 45 11/13/22 10:21 WBC RBC Hgb Hct MCV MCH MCHC RDW Plt Count MPV Neut # (Auto) Lymph # (Auto) Fajardo # (Auto) Eos # (Auto) Baso # (Auto) Absolute Nucleated RBC Nucleated RBC % Sodium Potassium Chloride Carbon Dioxide Anion Gap BUN Creatinine Estimated GFR (MDRD) Glucose Calcium Total Bilirubin AST ALT Alkaline Phosphatase Troponin I High Sens B-Natriuretic Peptide 18 Total Protein Albumin Globulin Albumin/Globulin Ratio Lipase - Rads (name of study) chest xray Relevant Findings:: Prelim report reviewed, EMP independent interpretation of test (no acute process), See rad report duplex right leg Relevant Findings:: Other ( tech states no DVT. ) PD Medical Decision Making - ED course Complexity details: reviewed results, considered differential (concern for mi as symptoms are same as prior [place] 2019. Will get trop ECG and CXR. check basic labs as well. check BNP for signs of failure instead. No stigmata of CHF. ), d/w patient Reviewed Lab Results: She has had symptoms for about 12 hours and has very normal troponin 3.3 and BNP 18, There should be some elevation if ACS. CXR clear so no signs of CHF/pneumonia/ infiltrate. Suppose esophageal cause could be possible though not affected by eating this morning. does not seem musculoskeletal in character. She had right leg swelling but has been walking less due to ankle pain. Duplex negative for DVT. Departure - Departure Disposition: Home, Self Care Clinical Impression: Dyspnea, Chest discomfort, Right leg swelling Condition: Stable Record reviewed to determine appropriate education?: Yes Instructions: ED Chest Pain Atypical Unkn Cause Follow-Up: Karen Fowler MD [Primary Care Provider] - Prescriptions: Albuterol Sulf [Ventolin Hfa Inhaler] 1 - 2 puffs INH Q4HR PRN #1 each PRN Reason: Shortness Of Air/Wheezing Famotidine [Pepcid] 20 mg PO DAILY #20 tablet Comments: Continue with your current medications. Add famotidine acid reducing medicine daily for the next few weeks. It is unclear the cause of your symptoms. Based on the testing today of blood test, CT of the chest, EKG, ultrasound of the leg, it is at least consoling that you do not have any signs of heart attack, heart failure, blood clots, collapsed lung, pneumonia, lung tumors. Considerations for your symptoms may be episodes of reflux or esophageal spasm. For that I would suggest the acid reducing medicine famotidine as noted above. Other consideration may be bronchospasm with's initiating with the cough and then feeling short of breath. I would suggest trying the albuterol inhaler 2 to 3 puffs when you are having an episode and see if that helps. You could also consider using the inhaler 2 puffs before activity such as gardening and see if it improves your endurance on those activities. Follow-up with your primary care. If persisting symptoms, they could order for you pulmonary function tests or other evaluation. I sent your prescriptions to [facility] in [place]. Discharge Date/Time: 11/13/22 15:11
[2022-11-13] MEDS ORDERED: NITROGLYCERIN SL 0.4 MG TABLET SL STA (11:42)
[2022-11-13] MEDS ORDERED: KETOROLAC 15 MG/ML VIAL IVP STA (11:45)
[2022-11-13] MEDS ORDERED: iohexoL-300 100 ML VIAL ONE (11:51)
[2022-11-13 12:10] VITALS: BP 113/55
[2022-11-13 12:41] LABS: POTASSIUM 4.4 mmol/L (3.5-5.0)
--- NOTE | 2022-11-13 13:04 | CT Report ---
PROCEDURE: CT chest angiogram with contrast INDICATIONS: left chest pain; right lower leg swell. CONTRAST: 80ml Omnipaque 300 TECHNIQUE: After the administration of intravenous contrast, 2 mm axial images were acquired from the pulmonary apices to the posterior costophrenic angles during the arterial phase. In addition, 1 mm lung kernel and 5 mm soft tissue kernel reconstructions were performed. coronal oblique maximum intensity project ion (MIP) reformats, 8 mm axial MIP, and 5 mm coronal and sagittal MPR reformats were then performed through the thorax. For radiation dose reduction, the following was used: automated exposure control, adjustment of mA and/or kV according to patient size. COMPARISON: None FINDINGS: Image quality: Excellent. Large vessels: No filling defect within the opacified pulmonary arteries. No evidence of acute aortic syndrome. No thoracic aortic aneurysm. Lungs and pleura: No pleural effusions. No pneumothorax. No suspicious pulmonary nodules which requi re follow up. Incidental bibasilar dependent atelectasis Mediastinum: Heart size is normal. No pericardial effusions. No mediastinal adenopathy by size criter ia. Chest wall and lower neck: Thyroid is unremarkable. No axillary or supraclavicular adenopathy by size . Bones: No aggressive osseous abnormality. Upper Abdomen: Unremarkable. IMPRESSION: No evidence of pulmonary embolism, aortic dissection or aneurysm. Minimal dependent basilar atelectasis Reviewed by: Ellis Stokes MD on 11/13/2022 12:03 PM [facility] Approved by: Ellis Stokes MD on 11/13/2022 12:03 PM [facility] Station ID: [id number]
--- NOTE | 2022-11-13 14:13 | Ultrasound Report ---
PROCEDURE: Duplex Ext Veins Right INDICATIONS: right leg swelling and pains TECHNIQUE: Real-time imaging, as well as color and pulse Doppler interrogation, were performed of the lower extr emity deep veins from the inguinal ligament to the popliteal fossa. COMPARISON: None. FINDINGS: The deep veins are normally compressible, and free of intraluminal thrombus. Color and pu lse Doppler demonstrate normal phasic intraluminal flow. There is normal augmentation response to di stal compression maneuver. IMPRESSION: No evidence of right lower extremity deep venous thrombosis. Reviewed by: Jim Perez MD on 11/13/2022 2:12 PM PDT Approved by: Jim Perez MD on 11/13/2022 2:12 PM PDT Station ID: [id number]
[2022-11-13] MEDS ORDERED: iohexoL-300 100 ML VIAL IVP ONE (17:58)
== END 2022-11-13 15:11 | disposition home or self-care (01) ==
LOC: ED 09:50
DX: R06.00 Dyspnea, unspecified (principal); R07.9 Chest pain, unspecified; R60.0 Localized edema
CPT/HCPCS: 36415; 71045; 71275; 80053; 83690; 83880; 84484; 85025; 93005; 93971; 99284; A9270; Q9967

== ENCOUNTER 2023-07-17 08:00 | Outpatient (CLI) | payer MEDICARE | END 2023-07-17 08:01 | disposition home or self-care (01) | LOC: LAB.N 08:00 | PROVIDERS: ATTEND Specialist | DX: R05.9 Cough, unspecified (principal) ==

== ENCOUNTER 2023-11-18 14:02 | Outpatient (CLI) | payer MEDICARE | END 2023-11-18 23:59 | disposition short-term general hospital (02) | LOC: EMS 14:02 | DX: R07.9 Chest pain, unspecified (principal); I25.2 Old myocardial infarction; Z95.5 Presence of coronary angioplasty implant and graft | CPT/HCPCS: A0425; A0427 ==